=== PATIENT | female | born 1950 | race Two or more races ===

== ENCOUNTER 2024-09-16 17:39 | Emergency (ER) | payer OTHER ==
[~2024-09-16] VITALS: Ht 162.6 cm; Wt 70.0 kg
[2024-09-16 18:53] VITALS: BP 126/68; PULSE 77; RESP 16; TEMP 97.9; O2SAT 96
[2024-09-16] MEDS: HYDROcodone-ACET 5/325MG TAB PO ONE (19:36)
[2024-09-16] MEDS: ONDANSETRON ODT 4 MG TAB PO ONE (19:36)
--- NOTE | 2024-09-16 19:40 | ED.PDOC ---
Back pain HPI HPI Comments 74 year old female presents to ER with complaints of fall injury x 1.5 hours. Patient with PMH of Parkinson's presents to ER VIA EMS, stating she had a mechanical trip and fall while attempting to put clothes on a shelf 1.5 hour prior to arrival to ER and fell forward onto her abdomen onto hard wood ze and has since been experiencing 6/10 lower lumbar back pain and bilateral hip pain. Notes she did hit her head onto hard wood ze upon falling, denying LOC. Patient presents in wheelchair, alert and oriented x4 and notes she does ambulate at home with use of walker. Denies headache, neck pain, n/v, numbness/tingling, use of blood thinners, abdominal pain, sob, chest pain, changes in urination/bm or any further symptoms/complaints Chief Complaint: Back Pain Time Seen by MD: 18:06 Primary Care Provider: UNKNOWN Reviewed Notes: Nurses Notes, Medications, Allergies Allergies: Coded Allergies: NO KNOWN ALLERGIES (Unverified , 09/16/24) Home Meds Active Scripts Acetaminophen W/ Codeine (Tylenol W/Cod #3) 1 Tab Tb, 1 TAB PO Q6HPRN, #10 TAB 0 Refills Prov:BRIANNE FUENTES 09/16/24 Information Source: Patient Mode of Arrival: EMS Past Medical History PAST MEDICAL HISTORY: Thyroid Past Medical History (Other): Parkinson's disease Surgical History: Denies all surgeries REGISTERED MAIL CLERK History: No Pertinent REGISTERED MAIL CLERK History Family History Family History: Unknown Social History Smoker: Non-Smoker Alcohol: Denies ETOH Use Drugs: Denies Drug Use Lives In: Home Constitutional: denies: chills, diaphoresis, fatigue, fever, malaise, sweats, weakness, others EENTM: denies: blurred vision, double vision, ear bleeding, ear discharge, ear drainage, ear pain, ear ringing, eye pain, eye redness, hearing loss, mouth pain, mouth swelling, nasal discharge, nose bleeding, nose congestion, nose pain, photophobia, tearing, throat pain, throat swelling, voice changes, others Respiratory: denies: cough, hemoptysis, orthopnea, SOB at rest, shortness of breath, SOB with excertion, stridor, wheezing, others Cardiovascular: denies: chest pain, dizzy spells, diaphoresis, Dyspnea on exertion, edema, irregular heart beat, left arm pain, lightheadedness, palpitations, PND, syncope, others Gastrointestinal: denies: abdomen distended, abdominal pain, blood streaked bowels, constipated, diarrhea, dysphagia, difficulty swallowing, hematemesis, melena, nausea, poor appetite, poor fluid intake, rectal bleeding, rectal pain, vomiting, others Genitourinary: denies: abnormal vagina bleeding, burning, dyspareunia, dysuria, flank pain, frequency, hematuria, incontinence, pain, , vagina disch arge, urgency, others Neurological: reports: others (As stated in HPI) Musculoskeletal: reports: others (As stated in HPI) Integumetry: denies: bruises, change in color, change in hair/nails, dryness, laceration, lesions, lumps, rash, wounds, others Allergic/Immunocompromised: denies: Difficulty Healing, Frequent Infections, Hives, Itching, others Hematologic/Lymphatic: denies: anemia, blood clots, easy bleeding, easy bruising, swollen glands, others Endocrine: denies: excessive hunger, excessive sweating, excessive thirst, excessive urination, flushing, intolerance to cold, intolerance to heat, unexplained weight gain, unexplained weight loss, others Psychiatric: denies: anxiety, bipolar disorder, depression, hopeless, panic disorder, schizophrenia, sleepless, suicidal, others Physical Exam General Appearance: No Apparent Distress HEENT: Normal ENT Inspection, PERRL/EOMI, Pharynx Normal, TMs Normal Neck: Full Range of Motion, Non-Tender, Normal Respiratory: Chest Non-Tender, Lungs Clear, No Accessory Muscle Use, No Respiratory Distress, Normal Breath Sounds Cardiovascular: No Murmur, No Gallop, Regular Rate/Rhythm Breast Exam: Deferred Gastrointestinal: Non Tender, No Pulsatile Mass, Soft Genitalia: Deferred Pelvic: Deferred Rectal: Deferred Extremities: Normal capillary refill Musculoskeletal : Extremity Location: Back (TTP to bilateral lower lumbar paraspinals and slight TTP to bilateral hips noted. No internal rotation/shortening to bilateral legs noted. No skin changes appreciated. 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 Was a procedure done?: No Sedation Sedation?: No Back Pain Differential Dx Differential Diagnosis: AAA, Fracture, Other (Neurovascular injury, subarachnoid hemorrhage, laceration) X-Ray, Labs, Meds, VS Vital Signs Date Time Temp Pulse Resp B/P (MAP) Pulse Ox O2 Delivery O2 Flow Rate FiO2 09/16/24 18:53 97.9 77 16 126/68 (87) 98 97.9 09/16/24 18:53 77 16 96 Room Air 09/16/24 17:39 98.0 78 16 128/65 (86) 94 Lab Test 09/16/24 20:50 Range/Units White Blood Count 9.8 4.4-10.8 10^3/uL Red Blood Count 3.93 L 4.0-5.20 10^6/uL Hemoglobin 13.1 12.2-16.2 g/dL Hematocrit 38.2 36.0-46.0 % Mean Corpuscular Volume 97.3 80.0-100.0 fL Mean Corpuscular Hemoglobin 33.3 H 28.0-32.0 pg Mean Corpuscular Hemoglobin Concent 34.2 32.0-36.0 g/dL Red Cell Distribution Width 13.1 11.8-14.3 % Platelet Count 173 140-450 10^3/uL Mean Platelet Volume 6.6 L 6.9-10.8 fL Neutrophils (%) (Auto) 84.1 H 37.0-80.0 % Lymphocytes (%) (Auto) 8.2 L 10.0-50.0 % Monocytes (%) (Auto) 7.0 0.0-12.0 % Eosinophils (%) (Auto) 0.5 0.0-7.0 % Basophils (%) (Auto) 0.2 0.0-2.0 % Neutrophils # (Auto) 8.2 1.6-8.6 10 ^3/uL Lymphocytes # (Auto) 0.8 0.4-5.4 10 ^3/uL Monocytes # (Auto) 0.7 0-1.3 10 ^3/uL Eosinophils # (Auto) 0.1 0-0.8 10 ^3/uL Basophils # (Auto) 0 0-0.2 10 ^3/uL Nucleated Red Blood Cells 0.1 % Prothrombin Time 11.5 9.3-11.8 sec Prothrombin Time INR 1.09 0.9-1.15 Activated Partial Thromboplast Time 25.9 24.5-34.5 SEC Sodium Level 142 136-145 mmol/L Potassium Level 4.0 3.5-5.1 mmol/L Chloride Level 108 H 98-107 mmol/L Carbon Dioxide Level 28 20-31 mmol/L Anion Gap 6 5-15 Blood Urea Nitrogen 15 9-23 mg/dL Creatinine 0.83 0.550-1.02 mg/dL Glomerular Filtration Rate Calc 73 >90 mL/min BUN/Creatinine Ratio 18.1 10.0-20.0 Serum Glucose 110 H 74-106 mg/dL Calcium Level 9.6 8.7-10.4 mg/dL Current Medications Medications (Trade) Dose Ordered Sig/Terry Route Start Time Stop Time Status Last Admin Acetaminophen/ Hydrocodone Bitart ([place] 5/325MG Tab) 1 tab ONCE ONCE PO 09/16/24 19:30 09/16/24 19:31 DC 09/16/24 19:36 Ondansetron HCl (Zofran Po) 4 mg ONCE ONCE PO 09/16/24 19:30 09/16/24 19:31 DC 09/16/24 19:36 PATIENT: MICHEL MAYA ACCT: [id number] UNIT: [id number] : 1950 LOC: ER ROOM / BED: / AGE / SEX: 74 / F ADM STATUS: REG ER SERVICE 23 ORDERING PHYSICIAN: BRIANNE FUENTES PROCEDURE(s): LS2CT - LS SPINE WO CONTRAST REASON: back pain ORDER NUMBER(s): [id number], ACCESSION NUMBER(s): [id number] EXAM: CT LS SPINE WO CONTRAST INDICATION: back pain EXAM DATE: 09/16/2024 07:39 PM COMPARISON: None TECHNIQUE: Multiple axial CT images of the lumbar spine were obtained using bone algorithm. Axial and coronal reformatting was done. Bone and soft tissue windows were reviewed. Radiation Dose Information: CT Dose: CTDI volume is 32.02 mGy. Dose-length product is 941.09 mGy*cm Findings: There are 5 nonrib-bearing lumbar vertebrae. There is no evidence of an acute fracture or spondylolisthesis. The vertebral body heights are well-maintained. Mild degenerative changes. No neuroforaminal narrowing. No spinal canal stenosis. The alignment is within normal limits. The paraspinal soft tissues appear within normal limits. The visualized portions of the abdomen are unremarkable. T12-L1: Normal L1-L2: Normal L2-L3: Normal L3-L4: Normal L4-L5: Severe degenerative disc disease. L5-S1: Severe degenerative disc disease. Impression: 1. No evidence of an acute fracture. 2. Mild degenerative changes with multilevel severe degenerative disc disease. ATED BY: BARBRA FUNES DO DICTATED DATE/TIME: 09/16/242015 SIGNED BY: BARBRA FUNES DO SIGNED DATE/TIME: 09/16/242015 CC: PATIENT: MICHEL MAYA ACCT: [id number] UNIT: [id number] : 1950 LOC: ER ROOM / BED: / AGE / SEX: 74 / F ADM STATUS: REG ER SERVICE 23 ORDERING PHYSICIAN: BRIANNE FUENTES PROCEDURE(s): PL2CT - PELVIS WO CONTRAST REASON: bilateral hip pain ORDER NUMBER(s): [id number], ACCESSION NUMBER(s): [id number] EXAM: CT PELVIS WO CONTRAST INDICATION: bilateral hip pain EXAM DATE: 09/16/2024 07:42 PM COMPARISON: None TECHNIQUE: Multiple axial CT images of the pelvis were obtained using bone algorithm. Axial and coronal reformatting was done. Bone and soft tissue windows were reviewed. Radiation Dose Information: CT Dose: CTDI volume is 15.84 mGy. Dose-length product is 507.72 mGy*cm Findings: Lack of intravenous contrast limits evaluation of solid organs and vasculature. No evidence of an acute fracture, dislocation, blastic, lytic, or osseous destructive lesions. No superficial soft tissue abnormalities. Moderate right hip and mild left hip degenerative changes. The urinary bladder is well-distended and unremarkable. The distal ureters, are within normal limits. Uterine and bilateral adnexal atrophy. No dilatation of the visualized portion of the bowel. No intraluminal free air or free fluid. Impression: 1. No acute osseous abnormality. 2. Moderate right hip and mild left hip degenerative changes. ATED BY: BARBRA FUNES DO DICTATED DATE/TIME: 09/16/242026 SIGNED BY: BARBRA FUNES DO SIGNED DATE/TIME: 09/16/242026 CC: PATIENT: MICHEL MAYA ACCT: [id number] UNIT: [id number] : 1950 LOC: ER ROOM / BED: / AGE / SEX: 74 / F ADM STATUS: REG ER SERVICE 23 ORDERING PHYSICIAN: BRIANNE FUENTES PROCEDURE(s): HWOCT - HEAD WITHOUT CONTRAST REASON: head injury ORDER NUMBER(s): [id number], ACCESSION NUMBER(s): [id number] Procedure: CT HEAD WITHOUT CONTRAST Study Date and Requested Time: 09/16/2024 07:36 PM History: head injury Comparison: None Dose: CTDI: 61.26 mGy DLP: 1207.16 mGycm Technique: Multiplanar images obtained through the brain without intravenous contrast. Findings: Mvbn-ep-cedeytst diffuse brain atrophy. Moderate bdpf-yuluosa-bgeq-right chronic small vessel ischemic changes. 0.6 x 0.7 cm nonspecific calcification within the right frontal lobe. 0.8 x 0.8 cm extra-axial right posterior frontal lobe calcified lesion which may represent a calcified meningioma versus part of the hyperostosis frontalis interna. No hemorrhages, midline shift, herniation or cytotoxic edema following a large vascular territory. No intra-axial or extra-axial fluid collections. No evidence of hydrocephalus. The basal cisterns are patent. The pituitary gland, sella and parasellar regions are unremarkable. The cerebellar tonsils are in normal position. The cerebellum is unremarkable. There is bilateral lens replacement. Otherwise, orbits and globes are un remarkable. The paranasal sinuses and mastoids are clear. There are no worrisome calvarial lesions. Suggested cerumen within the right external auditory canal. Impression: No evidence of acute intracranial hemorrhage. Moderate ralv-fdwtuwm-zcxv-right chronic small-vessel ischemic changes. Superimposed areas of acute infarct can not be excluded. Right frontal lobe focus of calcification which may represent sequela of chronic granulomatous disease.. ATED BY: CHIQUITA ROCHA DO DICTATED DATE/TIME: 09/16/242012 SIGNED BY: CHIQUITA ROCHA DO SIGNED DATE/TIME: 09/16/242012 CC: PATIENT: MICHEL MAYA ACCT: [id number] UNIT: [id number] : 1950 LOC: ER ROOM / BED: / AGE / SEX: 74 / F ADM STATUS: REG ER SERVICE 33 ORDERING PHYSICIAN: BRIANNE FUENTES PROCEDURE(s): [place] - ANGIO HEAD/Neck REASON: HEAD INJURY ORDER NUMBER(s): [id number], ACCESSION NUMBER(s): [id number] INDICATION: HEAD INJURY COMPARISON: None TECHNIQUE: CTA head without and with intravenous contrast. CTA neck with intravenous contrast. 3D image postprocessing was performed on a dedicated workstation and images were used for interpretation and reporting. Radiation Dose Information: CT Dose: CTDI volume is 22.65 mGy. Dose-length product is 781.1 mGy*cm FINDINGS: CT head: There is no evidence of acute intracranial hemorrhage, extra-axial collection, mass effect, midline shift, herniation or hydrocephalus. The ventricles, sulci and cisterns are age appropriate. The huerta-white differentiation is intact. The visualized paranasal sinuses and mastoid air cells are clear. The surrounding soft tissues and osseous structures are unremarkable. CTA head: There is normal enhancement of the visualized distal internal carotid, anterior and middle cerebral arteries. There is a normal anterior communicating artery complex. There are bilateral posterior communicating arteries. The vertebral, basilar, cerebellar and posterior cerebral arteries are within normal limits. The early parenchymal enhancement is grossly unremarkable. The visualized intracranial venous structures are grossly unremarkable. CTA neck: The visualized thoracic aortic arch and proximal great vessels are unremarkable. The left common, internal and external carotid arteries are within normal limits. The right common, internal and external carotid arteries are within normal limits. The cervical segments of the right and left vertebral arteries are within normal limits. The limited visualized lung apices are clear. The surrounding soft tissues and osseous structures are otherwise unremarkable. IMPRESSION: 1. No evidence of acute intracranial hemorrhage, mass effect or hydrocephalus. 2. No evidence of hemodynamically significant intracranial stenosis, proximal occlusion or aneurysm. 3. No evidence of hemodynamically significant cervical stenosis or dissection. All CT scans at this medical facility are performed using dose modulation te chniques as appropriate to a performed exam including the following: Automated exposure control was utilized; adjustment of the MA and/or KV according to patient size; and use of iterative reconstruction technique. ATED BY: OLINDA FIERRO MD DICTATED DATE/TIME: 09/16/242209 SIGNED BY: OLINDA FIERRO MD SIGNED DATE/TIME: 09/16/242209 CC: CT head without contrast reviewed CT lumbar spine without contrast reviewed CT pelvis without contrast reviewed CT angio head/neck reviewed Independence 5/325 mg p.o. ordered Zofran 4 mg p.o. ordered CBC reviewed without any significant abnormalities BMP reviewed without any significant abnormalities PT/PTT reviewed without any significant abnormalities Patient neurovascularly intact and reported improvement in symptoms prior to discharge Advised on rest/no strenuous activity and advised on continued use of walker at all times Advised to f/u with PCP in 1-2 days Patient and patients verbalized and agreeable with current plan of care Advised to return to ER immediately if symptoms worsen Images Reviewed?: Images reviewed and evaluated by me Time of 1ST Reevaluation: 19:34 Reevaluation 1ST: N/A Time of 2ND Reevaluation: 22:00 Reevaluation 2ND: Improved Patient Education/Counseling: Diagnosis, Treatment, Prognosis, Need For Follow Up Family Education/Counseling: Diagnosis, Treatment, Prognosis, Need For Follow Up Departure 1 Departure Time of Disposition: 22:22 Impression: Primary Impression: Lumbar strain Qualified Codes: S39.012A - Strain of muscle, fascia and tendon of lower back, initial encounter Additional Impressions: Contusion of hip, left Qualified Codes: S70.02XA - Contusion of left hip, initial encounter Contusion of hip, right Qualified Codes: S70.01XA - Contusion of right hip, initial encounter Hx of Parkinson's disease Head injury Qualified Codes: S09.90XA - Unspecified injury of head, initial encounter Disposition: HOME / SELF CARE / HOMELESS Condition: Stable e-Prescriptions Acetaminophen W/ Codeine (Tylenol W/Cod #3) 1 Tab Tb 1 TAB PO Q6HPRN, #10 TAB 0 Refills Prov: BRIANNE FUENTES 09/16/24 Discharged With: Significant Other Critical Care Note Critical Care Time?: No Stability Stability form required: No Heart Score Heart Score: Heart Score Response (Comments) Value History N/A 0 EKG N/A 0 Age N/A 0 Risk Factors N/A 0 Troponin N/A 0 Total 0 BRIANNE FUENTES Sep 16, 2024 19:40
--- NOTE | 2024-09-16 20:16 | DVH ---
Procedure: CT HEAD WITHOUT CONTRAST Study Date and Requested Time: 09/16/2024 07:36 PM History: head injury Comparison: None Dose: CTDI: 61.26 mGy DLP: 1207.16 mGycm Technique: Multiplanar images obtained through the brain without intravenous contrast. Findings: Fdas-wj-eazuofdx diffuse brain atrophy. Moderate uggo-ambuhop-daqr-right chronic small vessel ischemi c changes. 0.6 x 0.7 cm nonspecific calcification within the right frontal lobe. 0.8 x 0.8 cm extra-axial right posterior frontal lobe calcified lesion which may represent a calcifie d meningioma versus part of the hyperostosis frontalis interna. No hemorrhages, midline shift, herniation or cytotoxic edema following a large vascular territory. N o intra-axial or extra-axial fluid collections. No evidence of hydrocephalus. The basal cisterns are patent. The pituitary gland, sella and parasellar regions are unremarkable. The cerebellar tonsils are in nor mal position. The cerebellum is unremarkable. There is bilateral lens replacement. Otherwise, orbits and globes are unremarkable. The paranasal si nuses and mastoids are clear. There are no worrisome calvarial lesions. Suggested cerumen within the right external auditory canal. Impression: No evidence of acute intracranial hemorrhage. Moderate xpeo-pqhvtqc-raui-right chronic small-vessel ischemic changes. Superimposed areas of acute infarct can not be excluded. Right frontal lobe focus of calcification which may represent sequela of chronic granulomatous diseas e..
--- NOTE | 2024-09-16 20:19 | DVH ---
EXAM: CT LS SPINE WO CONTRAST INDICATION: back pain EXAM DATE: 09/16/2024 07:39 PM COMPARISON: None TECHNIQUE: Multiple axial CT images of the lumbar spine were obtained using bone algorithm. Axial and coronal reformatting was done. Bone and soft tissue windows were reviewed. Radiation Dose Information: CT Dose: CTDI volume is 32.02 mGy. Dose-length product is 941.09 mGy*cm Findings: There are 5 nonrib-bearing lumbar vertebrae. There is no evidence of an acute fracture or spondylolisthesis. The vertebral body heights are well-m aintained. Mild degenerative changes. No neuroforaminal narrowing. No spinal canal stenosis. The alignment is within normal limits. The paraspinal soft tissues appear within normal limits. The v isualized portions of the abdomen are unremarkable. T12-L1: Normal L1-L2: Normal L2-L3: Normal L3-L4: Normal L4-L5: Severe degenerative disc disease. L5-S1: Severe degenerative disc disease. Impression: 1. No evidence of an acute fracture. 2. Mild degenerative changes with multilevel severe degenerative disc disease.
--- NOTE | 2024-09-16 20:29 | DVH ---
EXAM: CT PELVIS WO CONTRAST INDICATION: bilateral hip pain EXAM DATE: 09/16/2024 07:42 PM COMPARISON: None TECHNIQUE: Multiple axial CT images of the pelvis were obtained using bone algorithm. Axial and coron al reformatting was done. Bone and soft tissue windows were reviewed. Radiation Dose Information: CT Dose: CTDI volume is 15.84 mGy. Dose-length product is 507.72 mGy*cm Findings: Lack of intravenous contrast limits evaluation of solid organs and vasculature. No evidence of an acute fracture, dislocation, blastic, lytic, or osseous destructive lesions. No sup erficial soft tissue abnormalities. Moderate right hip and mild left hip degenerative changes. The urinary bladder is well-distended and unremarkable. The distal ureters, are within normal limits. Uterine and bilateral adnexal atrophy. No dilatation of the visualized portion of the bowel. No intraluminal free air or free fluid. Impression: 1. No acute osseous abnormality. 2. Moderate right hip and mild left hip degenerative changes.
[2024-09-16 21:10] LABS: Basophils # (auto) 0 10 ^3/uL (0-0.2); Basophils % (auto) 0.2 % (0.0-2.0); Eosinophils # (auto) 0.1 10 ^3/uL (0-0.8); Eosinophils % (auto) 0.5 % (0.0-7.0); Hematocrit 38.2 % (36.0-46.0); Hemoglobin 13.1 g/dL (12.2-16.2); Lymphocytes # (auto) 0.8 10 ^3/uL (0.4-5.4); Lymphocytes % (auto) 8.2 % (10.0-50.0); Mean Corpuscular Hemoglobin 33.3 pg (28.0-32.0); Mean Corpuscular Hgb Conc. 34.2 g/dL (32.0-36.0); Mean Corpuscular Volume 97.3 fL (80.0-100.0); Monocytes # (auto) 0.7 10 ^3/uL (0-1.3); Neutrophils # (auto) 8.2 10 ^3/uL (1.6-8.6); Neutrophils % (auto) 84.1 % (37.0-80.0); Nucleated Red Blood Cells % 0.1 %; Platelet Count (auto) 173 10^3/uL (140-450); Red Blood Cells 3.93 10^6/uL (4.0-5.20); Red Cell Distribution Width 13.1 % (11.8-14.3); White Blood Cell 9.8 10^3/uL (4.4-10.8)
[2024-09-16 21:12] LABS: Chloride 108 mmol/L (98-107); Sodium 142 mmol/L (136-145)
[2024-09-16 21:13] LABS: Anion Gap 6 (5-15); Carbon Dioxide 28 mmol/L (20-31)
[2024-09-16 21:14] LABS: Calcium 9.6 mg/dL (8.7-10.4)
[2024-09-16 21:18] LABS: BUN/Creatinine Ratio 18.1 (10.0-20.0); Blood Urea Nitrogen 15 mg/dL (9-23); Glucose 110 mg/dL (74-106)
[2024-09-16 21:25] LABS: INR 1.09 (0.9-1.15); Partial Thromboplastin Time 25.9 SEC (24.5-34.5); Prothrombin Time 11.5 sec (9.3-11.8)
[2024-09-16] MEDS: IOHEXOL 350 MG/ML 100ML IJ ONE (21:44)
--- NOTE | 2024-09-16 22:12 | DVH ---
INDICATION: HEAD INJURY COMPARISON: None TECHNIQUE: CTA head without and with intravenous contrast. CTA neck with intravenous contrast. 3D image postprocessing was performed on a dedicated workstation and images were used for interpretation and reporting. Radiation Dose Information: CT Dose: CTDI volume is 22.65 mGy. Dose-length product is 781.1 mGy*cm FINDINGS: CT head: There is no evidence of acute intracranial hemorrhage, extra-axial collection, mass effect, midline s hift, herniation or hydrocephalus. The ventricles, sulci and cisterns are age appropriate. The huerta -white differentiation is intact. The visualized paranasal sinuses and mastoid air cells are clear. The surrounding soft tissues and osseous structures are unremarkable. CTA head: There is normal enhancement of the visualized distal internal carotid, anterior and middle cerebral a rteries. There is a normal anterior communicating artery complex. There are bilateral posterior com municating arteries. The vertebral, basilar, cerebellar and posterior cerebral arteries are within n ormal limits. The early parenchymal enhancement is grossly unremarkable. The visualized intracrania l venous structures are grossly unremarkable. CTA neck: The visualized thoracic aortic arch and proximal great vessels are unremarkable. The left common, internal and external carotid arteries are within normal limits. The right common, internal and external carotid arteries are within normal limits. The cervical segments of the right and left vertebral arteries are within normal limits. The limited visualized lung apices are clear. The surrounding soft tissues and osseous structures ar e otherwise unremarkable. IMPRESSION: 1. No evidence of acute intracranial hemorrhage, mass effect or hydrocephalus. 2. No evidence of hemodynamically significant intracranial stenosis, proximal occlusion or aneurysm. 3. No evidence of hemodynamically significant cervical stenosis or dissection. All CT scans at this medical facility are performed using dose modulation techniques as appropriate t o a performed exam including the following: Automated exposure control was utilized; adjustment of th e MA and/or KV according to patient size; and use of iterative reconstruction technique.
[2024-09-16] MEDS ORDERED: ACE3T PO (22:21)
== END 2024-09-16 22:36 | disposition home or self-care (01) ==
LOC: ER 17:39 → EDBD 17:39 → ER 22:35
DX: S39.012A Strain of muscle, fascia and tendon of lower back, initial encounter (principal); S70.01XA Contusion of right hip, initial encounter; S70.02XA Contusion of left hip, initial encounter; S09.8XXA Other specified injuries of head, initial encounter; G20.A1 Parkinson's disease without dyskinesia, without mention of fluctuations; Z79.899 Other long term (current) drug therapy; W01.198A Fall on same level from slipping, tripping and stumbling with subsequent striking against other object, initial encounter; Y93.89 Activity, other specified; Y92.89 Other specified places as the place of occurrence of the external cause; Y99.8 Other external cause status
CPT/HCPCS: 36415; 70450; 70496; 72131; 72192; 80048; 85025; 85610; 85730; 99285; Q0162; Q9967

== ENCOUNTER 2024-09-25 08:40 | Emergency (ER) | payer OTHER ==
[~2024-09-25] VITALS: Ht 167.6 cm; Wt 77.2 kg
[~2024-09-25 08:40] MED LIST: ACE3T PO
--- NOTE | 2024-09-25 09:16 | ED.PDOC ---
GI ASSESSMENT HPI Comments 74 y.o female presents to the ED via EMS for a chief complaint of lower abdominal pain associated with diarrhea that started 2-3 days ago. Patient is a poor historian, limited information obtained by her. Patient does mention no exposure to illness at home. EMS reports en route, 12 lead EKG read AFIB with RVR. Per patient, no history of AFIB and denied any chest pain, palpitations, fever, lightheadedness. Patient has no abdominal distention or trauma. Patient reports recent hospital visit one week ago due to back pain. Patient does wear adult diapers. No other symptoms or complaints reported. Chief Complaint: Abdominal Pain Time Seen by MD: 08:49 Reviewed Notes: Nurses Notes, Branch Service Leader Notes, Medications, Allergies Allergies: Coded Allergies: NO KNOWN ALLERGIES (Unverified , 09/25/24) Information Source: Patient, Emergency Med Personnel Mode of Arrival: Ambulatory Timing: Days (2-3 ) Duration: Since onset Quality: Aching Vomitus: None Stool: Loose Severity: Moderate Recent: None Recent Hx of: None Pain Location: Suprapubic Modifying Factors: Nothing Associated sign and symptoms: Diarrhea, Abdominal Pain Past Medical History PAST MEDICAL HISTORY: Thyroid Past Medical History (Other): Parkinson's disease 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: 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 Family History Family History: Reviewed,noncontributory to illness, No family hx of Cancer, No family hx of DM, No family hx of Heart jevon, No family hx of HTN, No family hx ofKidney jevon, No family hx of Liver jevon, No family hx of Lung jevon, No family hx of Stroke Social History Smoker: Non-Smoker Alcohol: Denies ETOH Use Drugs: Denies Drug Use Lives In: Home Constitutional: denies: chills, diaphoresis, fatigue, fever, malaise, sweats, weakness, others EENTM: denies: blurred vision, double vision, ear bleeding, ear discharge, ear drainage, ear pain, ear ringing, eye pain, eye redness, hearing loss, mouth pain, mouth swelling, nasal discharge, nose bleeding, nose congestion, nose pain, photophobia, tearing, throat pain, throat swelling, voice changes, others Respiratory: denies: cough, hemoptysis, orthopnea, SOB at rest, shortness of breath, SOB with excertion, stridor, wheezing, others Cardiovascular: denies: chest pain, dizzy spells, diaphoresis, Dyspnea on exertion, edema, irregular heart beat, left arm pain, lightheadedness, palpitations, PND, syncope, others Gastrointestinal: reports: abdominal pain, diarrhea; denies: abdomen distended, blood streaked bowels, constipated, dysphagia, difficulty swallowing, hematemesis, melena, nausea, poor appetite, poor fluid intake, rectal bleeding, rectal pain, vomiting, others Genitourinary: denies: abnormal vagina bleeding, burning, dyspareunia, dysuria, flank pain, frequency, hematuria, incontinence, pain, , vagina discharge, urgency, others Neurological: denies: dizziness, fainting, headache, left sided numbness, left sided weakness, numbness, paresthesia, pre-existing deficit, right sided numbness, right sided weakness, seizure, speech problems, tingling, tremors, weakness, others Musculoskeletal: denies: back pain, gout, joint pain, joint swelling, muscle pain, muscle stiffness, neck pain, others Integumetry: denies: bruises, change in color, change in hair/nails, dryness, laceration, lesions, lumps, rash, wounds, others Allergic/Immunocompromised: denies: Difficulty Healing, Frequent Infections, Hives, Itching, others Hematologic/Lymphatic: denies: anemia, blood clots, easy bleeding, easy bruising, swollen glands, others Endocrine: denies: excessive hunger, excessive sweating, excessive thirst, excessive urination, flushing, intolerance to cold, intolerance to heat, unexplained weight gain, unexplained weight loss, others Psychiatric: denies: anxiety, bipolar disorder, depression, hopeless, panic disorder, schizophrenia, sleepless, suicidal, others All Other Systems: Reviewed and Negative Physical Exam General Appearance: No Apparent Distress, Normal HEENT: Normal ENT Inspection, Pharynx Normal, TMs Normal Neck: Full Range of Motion, Non-Tender, Normal, Normal Inspection Respiratory: Chest Non-Tender, Lungs Clear, No Accessory Muscle Use, No Respiratory Distress, Normal Breath Sounds Cardiovascular: No Edema, No JVD, No Murmur, No Gallop, Normal Peripheral Pulses, Regular Rate/Rhythm Breast Exam: Deferred Gastrointestinal: Non Tender, Soft Genitalia: Deferred Pelvic: Deferred Rectal: Deferred Extremities: No calf tenderness, Normal capillary refill, Normal inspection, Normal range of motion, Non-tender, No pedal edema Musculoskeletal : Apperance: Normal Neurologic: Alert, director women II-XII nml as Tested, No Motor Deficits, Normal Affect, Normal Mood, No Sensory Deficits Cerebellar Function: Normal Reflexes: Normal Skin: Dry, Normal Color, Warm Lymphatic: No Adenopathy Was a procedure done? Was a procedure done?: No GI differential Dx Differential Diagnosis: Bowel Obstruction, Cholangitis, Cholecystitis, Constipation, Diverticular disease, Esophagitis, Gastritis/PUD, Gastroenteritis, Hernia, Hepatitis, Inflammatory BD, Ischemic Bowel, Pancreatitis, UTI, Dehydration, Diabetes/ DKA, Electrolyte Imbalance, Food Poisoning, Bacterial, Parasitic, Viral, Hypovolemia, Impaction, Malnutrition, Renal Failure, Ischemic Bowel X-Ray, Labs, Meds, VS Vital Signs Date Time Temp Pulse Resp B/P (MAP) Pulse Ox O2 Delivery O2 Flow Rate FiO2 09/25/24 12:23 70 18 124/64 (84) 96 09/25/24 10:31 76 18 121/72 (88) 95 09/25/24 09:40 72 16 95 Room Air* 0 21 09/25/24 09:38 98.1 68 18 119/75 (90) 95 98.1 09/25/24 09:37 70 09/25/24 08:50 98.7 169 13 126/66 (86) 98 09/25/24 08:46 169 Lab Test 09/25/24 09:34 09/25/24 09:25 Range/Units White Blood Count 4.8 4.4-10.8 10^3/uL Red Blood Count 3.82 L 4.0-5.20 10^6/uL Hemoglobin 12.8 12.2-16.2 g/dL Hematocrit 37.1 36.0-46.0 % Mean Corpuscular Volume 97.1 80.0-100.0 fL Mean Corpuscular Hemoglobin 33.4 H 28.0-32.0 pg Mean Corpuscular Hemoglobin Concent 34.4 32.0-36.0 g/dL Red Cell Distribution Width 13.1 11.8-14.3 % Platelet Count 221 140-450 10^3/uL Mean Platelet Volume 6.6 L 6.9-10.8 fL Neutrophils (%) (Auto) 63.8 37.0-80.0 % Lymphocytes (%) (Auto) 24.0 10.0-50.0 % Monocytes (%) (Auto) 10.0 0.0-12.0 % Eosinophils (%) (Auto) 1.7 0.0-7.0 % Basophils (%) (Auto) 0.5 0.0-2.0 % Neutrophils # (Auto) 3.0 1.6-8.6 10 ^3/uL Lymphocytes # (Auto) 1.1 0.4-5.4 10 ^3/uL Monocytes # (Auto) 0.5 0-1.3 10 ^3/uL Eosinophils # (Auto) 0.1 0-0.8 10 ^3/uL Basophils # (Auto) 0 0-0.2 10 ^3/uL Nucleated Red Blood Cells 0.1 % Sodium Level 145 136-145 mmol/L Potassium Level 3.5 3.5-5.1 mmol/L Chloride Level 107 98-107 mmol/L Carbon Dioxide Level 29 20-31 mmol/L Anion Gap 9 5-15 Blood Urea Nitrogen 14 9-23 mg/dL Creatinine 0.75 0.550-1.02 mg/dL Glomerular Filtration Rate Calc 82 >90 mL/min BUN/Creatinine Ratio 18.7 10.0-20.0 Serum Glucose 96 74-106 mg/dL Calcium Level 9.6 8.7-10.4 mg/dL Total Bilirubin 0.6 0.2-1.0 mg/dL Aspartate Amino Transferase (AST) 16 13-40 U/L Alanine Aminotransferase (ALT) 53 H 7-40 U/L Alkaline Phosphatase 97 46-116 U/L Total Protein 6.8 5.7-8.2 g/dL Albumin 4.2 3.2-4.8 g/dL Urine Color Light-yellow Yellow Urine Clarity Clear Clear Urine pH 6.0 5.0-9.0 Urine Specific [place] 1.013 1.001-1.035 Urine Protein Negative Negative Urine Ketones Negative Negative Urine Blood Negative Negative /uL Urine Nitrite Negative Negative Urine Bilirubin Negative Negative Urine Urobilinogen Normal Negative mg/dL Urine Leukocyte Esterase Negative Negative /uL Urine RBC None seen 0 - 4 /hpf Urine WBC <1 0 - 5 /hpf Urine Squamous Epithelial Cells None seen <5 /hpf Urine Bacteria Few H None Seen /hpf Urine Glucose Normal Normal mg/dL [facility] [id number] [facility] [address] Ph: [phone] DIAGNOSTIC IMAGING Diagnostic Imaging Report : [id number] Signed PATIENT: MICHEL MAYA ACCT: [id number] UNIT: [id number] : 1950 LOC: ER ROOM / BED: / AGE / SEX: 74 / F ADM STATUS: REG ER SERVICE [id number] ORDERING PHYSICIAN: LAUREN HOBBS MD PROCEDURE(s): ABPL - CT AB PEL WO CON-NO ORAL OR IV REASON: pain, diarrhea ORDER NUMBER(s): [id number], ACCESSION NUMBER(s): [id number] Exam: CT CT AB PEL WO CON-NO ORAL OR IV History: pain, diarrhea Comparison Study: None Technique: Multidetector spiral CT of the abdomen was performed from lung bases to pubic symphysis. Imaging was performed without IV contrast. Axial, coronal and sagittal multiplanar reformats were obtained from the axial data set by the technologist. Radiation Dose : 1. Abdomen/Pelvis: CTDIvol 16.3 mGy, DLP 835.57 mGy*cm. Findings: Evaluation of solid organs is limited due to lack of intravenous contrast use. Lung Bases: Mild areas of linear atelectasis at the lung bases. There is a 1.0 x 0.8 cm nodule in the right middle lobe with an eccentric focus of calcification. Liver: The liver is normal in size. No focal lesions. Gallbladder and Biliary Tree: Status post cholecystectomy. Mild prominence of the CBD and intrahepatic bile ducts are likely postsurgical in nature. Spleen: Unremarkable Pancreas: The pancreas is grossly normal in appearance. Adrenal Glands: Unremarkable Kidneys: Kidneys are grossly normal without calculi or hydronephrosis. There are a couple of small round calcifications along the course of the left ureter, favored to represent phleboliths as there is no associated hydronephrosis. Bladder: Grossly unremarkable for degree of distention. Bowel: Along the posterior surface of the gastric fundus there is a 2.5 x 2.1 cm round fluid collection that contains a small amount of gas, favored to represent a gastric diverticulum. Small bowel and colon are normal in caliber and distribution. Normal appendix is visualized in the right lower quadrant without findings of appendicitis. Ascites: Absent Lymphadenopathy: No mesenteric, retroperitoneal or periportal lymphadenopathy. Abdominal Wall and Mesentery: Unremarkable. Vasculature: The visualized abdominal aorta is normal in size and caliber. Evaluation of abdominal and pelvic vessels is limited due to lack of intravenous contrast. Pelvic Organs: Unremarkable Musculoskeletal: Mild compression deformity of the L2 vertebral body is favored to be subacute or chronic. Advanced degenerative disc change at L4-L5. Degenerative changes are noted in the sacroiliac joints and hips. IMPRESSION: 1. No bowel obstruction. Appendix is normal. 2. There is a 1.0 x 0.8 cm lung nodule in the right middle lobe with eccentric calcification. Recommend correlation with nonemergent chest CT. 3. Several small round calcifications along the course of the left ureter are favored to represent adjacent phleboliths. There is no hydronephrosis. 4. Mild compression deformity at L2 is favored to be subacute or chronic. 5. Small gastric diverticulum. Radiation optimization: All CT scans at this facility use at least one of these dose optimization techniques: automated exposure control mA and/or kV adjustment per patient size (includes targeted exams where dose is matched to clinical indication) or iterative reconstruction. 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 No bowel obstruction. Appendix is normal. 2. There is a 1.0 x 0.8 cm lung nodule in the right middle lobe with eccentric calcification. Recommend correlation with nonemergent chest CT. 3. Several small round calcifications along the course of the left ureter are favored to represent adjacent phleboliths. There is no hydronephrosis. 4. Mild compression deformity at L2 is favored to be subacute or chronic. 5. Small gastric diverticulum. pt is resting comfortably. workup is unremarkable. however, pt reports that she has no one to take care of her at home. i will consult [facility] to arrange for a safe discharge Dr Jamil at [facility] accepted the transfer and will have pt go to [facility] for placement evel. #[id number] Departure 1 Departure Time of Disposition: 11:57 Impression: Primary Impression: Diarrhea Qualified Codes: R19.7 - Diarrhea, unspecified Additional Impressions: Parkinson disease Qualified Codes: G20.A1 - Parkinson's disease without dyskinesia, without mention of fluctuations Generalized weakness Disposition: 02 SHORT TERM HOSPITAL Condition: Stable Critical Care Note Critical Care Time?: Yes (55 min-critical care time only) Critical care comment: due to concerns for sudden deterioration of pt's condition, the patient's care required my most attentive level and highest readiness to intervene. i assessed him, ordered the appropriate orders, reviewed the results, and reassessed the patient's response, formulated a care plan, communicated with medical personnel and consultants. total time include at least 50% face-face interaction and does not include any procedures Stability Stability form required: Yes I personally scribed for LAUREN HOBBS MD ([facility]) on 09/25/24 at 09:16. Electronically submitted by Joanna Melchor ([facility]). I personally scribed for LAUREN HOBBS MD ([facility]) on 09/25/24 at 09:33. Electronically submitted by Joanna Melchor ([facility]). I personally scribed for LAUREN HOBBS MD ([facility] on 09/25/24 at 09:34. Electronically submitted by Joanna Melchor ([facility]). I personally scribed for LAUREN HOBBS MD ([facility]) on 09/25/24 at 10:45. Electronically submitted by Joanna Melchor ([facility]). I personally scribed for LAUREN HOBBS MD ([facility]) on 09/25/24 at 11:23. Electronically submitted by Joanna Melchor ([facility]). LAUREN HOBBS MD Sep 25, 2024 09:16
[2024-09-25 09:40] VITALS: PULSE 72; RESP 16; O2SAT 95
[2024-09-25 09:45] LABS: Urine Bacteria FEW /hpf (None Seen); Urine Blood Negative /uL (Negative); Urine Clarity Clear (Clear); Urine Color Light-Yellow (Yellow); Urine Protein, UAD Negative (Negative); Urine Specific Gravity 1.013 (1.001-1.035); Urine Urobilinogen Normal (Negative); Urine WBC <1 /hpf (0 - 5)
[2024-09-25 09:55] LABS: Basophils # (auto) 0 10 ^3/uL (0-0.2); Basophils % (auto) 0.5 % (0.0-2.0); Eosinophils # (auto) 0.1 10 ^3/uL (0-0.8); Eosinophils % (auto) 1.7 % (0.0-7.0); Hematocrit 37.1 % (36.0-46.0); Hemoglobin 12.8 g/dL (12.2-16.2); Lymphocytes # (auto) 1.1 10 ^3/uL (0.4-5.4); Mean Corpuscular Hemoglobin 33.4 pg (28.0-32.0); Mean Corpuscular Hgb Conc. 34.4 g/dL (32.0-36.0); Mean Corpuscular Volume 97.1 fL (80.0-100.0); Monocytes # (auto) 0.5 10 ^3/uL (0-1.3); Neutrophils % (auto) 63.8 % (37.0-80.0); Nucleated Red Blood Cells % 0.1 %; Platelet Count (auto) 221 10^3/uL (140-450); Red Blood Cells 3.82 10^6/uL (4.0-5.20); Red Cell Distribution Width 13.1 % (11.8-14.3); White Blood Cell 4.8 10^3/uL (4.4-10.8)
[2024-09-25 10:23] LABS: Albumin 4.2 g/dL (3.2-4.8); Alkaline Phosphatase 97 U/L (46-116); Anion Gap 9 (5-15); Aspartate Aminotransferase 16 U/L (13-40); BUN/Creatinine Ratio 18.7 (10.0-20.0); Bilirubin, Total 0.6 mg/dL (0.2-1.0); Blood Urea Nitrogen 14 mg/dL (9-23); Calcium 9.6 mg/dL (8.7-10.4); Carbon Dioxide 29 mmol/L (20-31); Chloride 107 mmol/L (98-107); Glucose 96 mg/dL (74-106); Potassium 3.5 mmol/L (3.5-5.1)
[2024-09-25 10:24] LABS: Total Protein 6.8 g/dL (5.7-8.2)
[2024-09-25 10:32] LABS: Alanine Aminotransferase 53 U/L (7-40); Sodium 145 mmol/L (136-145)
--- NOTE | 2024-09-25 10:45 | DVH ---
Exam: CT CT AB PEL WO CON-NO ORAL OR IV History: pain, diarrhea Comparison Study: None Technique: Multidetector spiral CT of the abdomen was performed from lung bases to pubic symphysis. Imaging was performed without IV contrast. Axial, coronal and sagittal multiplanar reformats were ob tained from the axial data set by the technologist. Radiation Dose : 1. Abdomen/Pelvis: CTDIvol 16.3 mGy, DLP 835.57 mGy*cm. Findings: Evaluation of solid organs is limited due to lack of intravenous contrast use. Lung Bases: Mild areas of linear atelectasis at the lung bases. There is a 1.0 x 0.8 cm nodule in the right middle lobe with an eccentric focus of calcification. Liver: The liver is normal in size. No focal lesions. Gallbladder and Biliary Tree: Status post cholecystectomy. Mild prominence of the CBD and intrahepati c bile ducts are likely postsurgical in nature. Spleen: Unremarkable Pancreas: The pancreas is grossly normal in appearance. Adrenal Glands: Unremarkable Kidneys: Kidneys are grossly normal without calculi or hydronephrosis. There are a couple of small ro und calcifications along the course of the left ureter, favored to represent phleboliths as there is no associated hydronephrosis. Bladder: Grossly unremarkable for degree of distention. Bowel: Along the posterior surface of the gastric fundus there is a 2.5 x 2.1 cm round fluid collecti on that contains a small amount of gas, favored to represent a gastric diverticulum. Small bowel and colon are normal in caliber and distribution. Normal appendix is visualized in the right lower quadr ant without findings of appendicitis. Ascites: Absent Lymphadenopathy: No mesenteric, retroperitoneal or periportal lymphadenopathy. Abdominal Wall and Mesentery: Unremarkable. Vasculature: The visualized abdominal aorta is normal in size and caliber. Evaluation of abdominal a nd pelvic vessels is limited due to lack of intravenous contrast. Pelvic Organs: Unremarkable Musculoskeletal: Mild compression deformity of the L2 vertebral body is favored to be subacute or chr onic. Advanced degenerative disc change at L4-L5. Degenerative changes are noted in the sacroiliac dolly ints and hips. IMPRESSION: 1. No bowel obstruction. Appendix is normal. 2. There is a 1.0 x 0.8 cm lung nodule in the right middle lobe with eccentric calcification. Recomme nd correlation with nonemergent chest CT. 3. Several small round calcifications along the course of the left ureter are favored to represent ad jacent phleboliths. There is no hydronephrosis. 4. Mild compression deformity at L2 is favored to be subacute or chronic. 5. Small gastric diverticulum. Radiation optimization: All CT scans at this facility use at least one of these dose optimization juan hniques: automated exposure control mA and/or kV adjustment per patient size (includes targeted exam s where dose is matched to clinical indication) or iterative reconstruction.
[2024-09-25] MEDS: HYDROcodone-ACET 5/325MG TAB PO ONE (14:01)
[2024-09-25 14:16] VITALS: BP 117/74; PULSE 74; RESP 18; TEMP 98.1; O2SAT 94
--- NOTE | 2024-09-27 10:45 | ECG ---
[facility] Test Date: 2024-09-25 Test Time: 08:46:40 Pat Name: MICHEL MAYA Department: ER Room: Gender: F Public Relations Studies Director: RONALDO : 1950 Requested By: LAUREN HOBBS Order Number: [id number] Reading MD: Amarjit Patino Measurements Intervals [place] Rate: 169 P: 0 NC: 0 QRS: 18 QRSD: 97 T: 45 QT: 487 QTc: 817 Interpretive Statements Atrial fibrillation Paired ventricular premature complexes Low voltage, precordial leads Borderline T abnormalities, anterior leads Prolonged QT interval Electronically Signed On 10-01-2024 13:32:59 PST by Amarjit Patino Please click the below link to view image of tracing.
--- NOTE | 2024-09-29 14:58 | ECG ---
[facility] Test Date: 2024-09-25 Test Time: 09:37:16 Pat Name: MICHEL MAYA Department: ER Room: Gender: F Fitting Room Attendant: RONALDO : 1950 Requested By: LAUREN HOBBS Order Number: [id number] Reading MD: Amarjit Patino Measurements Intervals [place] Rate: 70 P: 0 MT: 0 QRS: -11 QRSD: 85 T: 28 QT: 580 QTc: 627 Interpretive Statements Normal sinus rhythm Premature atrial contractions Low voltage, precordial leads Borderline abnrm T, anterolateral leads Prolonged QT interval Electronically Signed On 10-01-2024 13:33:39 PST by Amarjit Patino Please click the below link to view image of tracing.
== END 2024-09-25 14:30 | disposition short-term general hospital (02) ==
LOC: ER 08:40 → MERGE 08:40 → EDBD 08:40 → ER 14:30
DX: G20.A1 Parkinson's disease without dyskinesia, without mention of fluctuations (principal); R19.7 Diarrhea, unspecified; R53.1 Weakness
CPT/HCPCS: 36415; 74176; 80053; 81001; 85025; 93005